=== PATIENT | male | born 1995 | race Caucasian/White ===

== ENCOUNTER 2019-04-11 15:12 | Emergency (ER) | payer BC, MEDICAID ==
[2019-04-11] MEDS ORDERED: Morphine 2 MG/ML Syringe IM ONE (15:59)
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
== END 2019-04-11 16:42 | disposition home or self-care (01) ==
LOC: LL.ED 15:12
DX: S89.91XA Unspecified injury of right lower leg, initial encounter (principal); V49.40XA Driver injured in collision with unspecified motor vehicles in traffic accident, initial encounter
CPT/HCPCS: 36415; 73552; 73590; 85025; 99283; J2270